=== PATIENT | female | born 1960 | race African-American/Black ===

== ENCOUNTER 2021-11-14 13:51 | Inpatient (IN) | payer BC ==
[~2021-11-14] VITALS: Ht 177.8 cm; Wt 86.7 kg
[2021-11-14 16:08] LABS: HEMATOCRIT. 33.9 % (36.0-48.0); HEMOGLOBIN. 10.9 g/dL (12.0-16.0); MEAN CORPUSCULAR HEMOGLOBIN 29.2 pg (28.0-32.0); MEAN CORPUSCULAR VOLUME 90.6 fL (81.0-99.0); MEAN PLATELET VOLUME 9.1 fl (7.4-10.4); PLATELET 113 x1000/uL (130-400); RED BLOOD CELL COUNT 3.74 mill/uL (4.2-5.4); RED CELL DISTRIBUTION WIDTH 22.2 % (11.6-14.6)
[2021-11-14 16:15] LABS: CHLORIDE 115 mEq/L (98-107)
[2021-11-14] MEDS ORDERED: SODIUM CHLORIDE 0.9% 1,000 ML IV ONE (16:15)
[2021-11-14 16:52] LABS: PLATELET ESTIMATE DECREASED
[2021-11-14] MEDS ORDERED: VANCOMYCIN 1G PREMIX 200 ML IV ONE (17:00)
[2021-11-14] MEDS ORDERED: PIPERACILLIN/TAZ 3.375G PREMIX 50 ML IV ONE (17:00)
[2021-11-14] MEDS ORDERED: SODIUM CHLORIDE 0.9% 1000ML BAG (SEPSIS BOLUS) IV ONE (17:00)
[2021-11-14 17:39] LABS: CLARITY URINE CLOUDY (CLEAR); COLOR URINE YELLOW (YELLOW); KETONES URINE TRACE (NEGATIVE); LEUKOCYTE ESTERASE URINE NEGATIVE (NEGATIVE); NITRITE URINE NEGATIVE (NEGATIVE); OCCULT BLOOD URINE 2+ (NEGATIVE); PROTEIN URINE 1+ (NEGATIVE); SPECIFIC GRAVITY URINE 1.031 (1.005-1.030)
[2021-11-14] MEDS ORDERED: GUAIFENESIN 200MG/10ML SUGAR FREE UDC PO PRN (20:00)
[2021-11-14] MEDS ORDERED: MAGNESIUM/ALUMINUM HYDROXIDE/SIMETHICONE 30ML UDC PO PRN (20:00)
[2021-11-14] MEDS ORDERED: ONDANSETRON HCL 4MG/2ML INJ IV PRN (20:00)
[2021-11-14] MEDS ORDERED: ACETAMINOPHEN 325MG TABLET PO PRN (20:00)
[2021-11-14] MEDS ORDERED: DOCUSATE SODIUM 100MG CAPSULE PO PRN (20:00)
[2021-11-14] MEDS ORDERED: CEFTRIAXONE 1 G PREMIX 50 ML IV SCH (21:00)
[2021-11-14] MEDS ORDERED: ENOXAPARIN 40MG/0.4ML SYR SUBCUT SCH ×2 (21:00→23:00)
[2021-11-14 22:15] VITALS: BP 126/66
[2021-11-14] MEDS ORDERED: CEFTRIAXONE 1,000 MG in DEXTROSE 5% WATER 50 ML IV SCH (23:15)
[2021-11-15] VITALS: BP 118/68
[2021-11-15 04:00] VITALS: BP 110/70
[2021-11-15 07:02] LABS: CHLORIDE 115 mEq/L (98-107)
[2021-11-15 07:11] LABS: EOSINOPHILS % 1.6 % (0.0-5.0); HEMATOCRIT. 28.9 % (36.0-48.0); HEMOGLOBIN. 9.6 g/dL (12.0-16.0); LYMPHOCYTES % 16.2 % (20.0-50.0); MEAN CORPUSCULAR HEMOGLOBIN 29.7 pg (28.0-32.0); MEAN PLATELET VOLUME 8.7 fl (7.4-10.4); MONOCYTES % 2.7 % (2.0-8.0); NEUTROPHILS % 78.5 % (40.0-76.0); PLATELET 109 x1000/uL (130-400); RED BLOOD CELL COUNT 3.24 mill/uL (4.2-5.4)
[2021-11-15 07:12] LABS: LDL CHOLESTEROL 84 mg/dL (5-100)
[2021-11-15 07:13] LABS: HDL CHOLESTEROL 42 mg/dL (40-59)
[2021-11-15 07:14] LABS: T4 FREE 1.31 ng/dL (0.76-1.46)
[2021-11-15 08:00] VITALS: BP 101/69
[2021-11-15 11:35] VITALS: BP 102/64
[2021-11-15 12:00] VITALS: BP 102/64
== END 2021-11-15 12:20 | disposition home or self-care (01) | DRG 73 ==
LOC: ER 14:40 → EDBEDREQ 18:02 → 7EST 18:09 → EDBEDREQTM 18:12 → EDBEDREQ 18:12 → ENRESERV 21:30
PROVIDERS: ADMIT Hospitalist; ATTEND Hospitalist
DX: G90.9 Disorder of the autonomic nervous system, unspecified (principal); E43 Unspecified severe protein-calorie malnutrition; C16.9 Malignant neoplasm of stomach, unspecified; Z20.822 Contact with and (suspected) exposure to COVID-19; H11.33 Conjunctival hemorrhage, bilateral; D63.8 Anemia in other chronic diseases classified elsewhere; Z86.73 Personal history of transient ischemic attack (TIA), and cerebral infarction without residual deficits; Z95.828 Presence of other vascular implants and grafts; Z68.27 Body mass index [BMI] 27.0-27.9, adult
CPT/HCPCS: 36415; 71045; 80048; 80053; 80061; 80076; 81003; 83605; 84439; 84443; 84484; 85025; 87426; 93005; 93306; 93970; 99291; J0696; J1650; J2543; J3370; J7030; J7060